=== PATIENT | male | born 1980 | race Caucasian/White ===

== ENCOUNTER 2023-08-19 03:30 | Emergency (ER) | payer OTHER ==
[~2023-08-19] VITALS: Ht 182.9 cm; Wt 127.0 kg
[~2023-08-19 03:30] MED LIST: ALPR1TAB2 PO; DOXY100C5 PO; DULO60CA42 PO; HYDR-3919 PO; WELSR150 PO; [UNRECOGNIZED DRUG - REMARK]
[2023-08-19 03:44] VITALS: BP_SYST 125; PULSE 74; RESP 20; TEMP 97.3; O2SAT 99
[2023-08-19] MEDS ORDERED: DOXY100C5 PO (04:34)
[2023-08-19 04:45] VITALS: BP_SYST 125; PULSE 74; RESP 20; TEMP 97.3; O2SAT 99
== END 2023-08-19 04:44 | disposition home or self-care (01) ==
LOC: SED 03:30
DX: L03.115 Cellulitis of right lower limb (principal); I10 Essential (primary) hypertension; Z79.899 Other long term (current) drug therapy; Z79.2 Long term (current) use of antibiotics
CPT/HCPCS: 99283